=== PATIENT | male | born 1945 | race Caucasian/White ===

== ENCOUNTER → 2024-07-19 14:06 | Outpatient (BNVA) | payer MEDICARE, BC, SELFPAY | PROVIDERS: Family Provider Family Medicine; PCP Family Medicine; Visit Provider Physician Assistant | DX: M17.9 Osteoarthritis of knee, unspecified; M79.89 Other specified soft tissue disorders | CPT/HCPCS: 20610; 73560; 73565; 99203; J3301 ==

== ENCOUNTER 2024-08-08 12:19 | Outpatient (CLI) | payer MEDICARE, BC, SELFPAY ==
--- NOTE | 2024-08-08 12:30 | USCV_ITS ---
Dexter Carrera Age: 78 Gender: M : 1945 Exam Date: 08/08/2024 12:40 Ordering Phys: Hadley Wolfe Technologist: THANH Exam Location: [facility] [place] Indication: Rt knee lump HISTORY: Post knee lump PROCEDURES: Venous duplex imaging was performed in only the right lower extremity. The following venous structures were evaluated: common femoral vein, profunda vein, proximal portion of the greater saphenous vein, superficial femoral vein, and the popliteal vein. In addition, the posterior tibial and peroneal trunk were evaluated. Serial compression, augmentation maneuvers, and spectral Doppler flow evaluation were performed. FINDINGS: No evidence of DVT seen in any vessel visualized at this time. ?loculated bakers cyst post knee CONCLUSIONS No evidence of right lower extremity DVT. Septated popliteal cyst with complex internal debris 3.1 4.2 7.4CM Tushar Alonso MD (Electronically Signed) Final Date: 08 August 2024 16:38 S
== END 2024-08-08 12:20 | disposition home or self-care (01) ==
LOC: RAD 12:21
PROVIDERS: Family Provider Family Medicine; PCP Family Medicine; Visit Provider Physician Assistant
DX: M79.89 Other specified soft tissue disorders (principal); M71.21 Synovial cyst of popliteal space [Baker], right knee
CPT/HCPCS: 93971

== ENCOUNTER → 2024-08-22 14:19 | Outpatient (BNVA) | payer MEDICARE, BC, SELFPAY | PROVIDERS: Family Provider Family Medicine; PCP Family Medicine; Visit Provider Physician Assistant | DX: M79.89 Other specified soft tissue disorders (principal); M17.11 Unilateral primary osteoarthritis, right knee | CPT/HCPCS: 99213 ==